=== PATIENT | female | born 1960 | race Caucasian/White ===

== ENCOUNTER 2018-04-06 10:51 | Emergency (ER) | payer OTHER ==
[~2018-04-06] VITALS: Ht 172.7 cm; Wt 79.4 kg
[2018-04-06 10:58] VITALS: BP 111/76
[2018-04-06 12:22] LABS: CALCIUM 9.3 mg/dL (8.5-10.1); CREATININE 0.6 mg/dL (0.6-1.0); POTASSIUM 4.1 mmol/L (3.5-5.1)
[2018-04-06] MEDS ORDERED: BUTALB-APAP-CA1 EACH PO (13:44)
[2018-04-06] MEDS ORDERED: ONDANSETRON HCL4 M2 PO (14:01)
== END 2018-04-06 14:50 | disposition home or self-care (01) ==
LOC: ER 10:51
PROVIDERS: Physician Assistant
DX: G43.909 Migraine, unspecified, not intractable, without status migrainosus (principal); R11.2 Nausea with vomiting, unspecified